=== PATIENT | female | born 1965 | race Caucasian/White ===

== ENCOUNTER 2016-05-03 18:28 | Emergency (ER) | payer MEDICARE, OTHER ==
[2016-05-03 18:42] VITALS: BP 123/81
[2016-05-03] MEDS ORDERED: DIAZEPAM 5 MG/ML SYRG IM ONE (19:53)
[2016-05-03] MEDS ORDERED: KETOROLAC TROMETHAMINE 60 MG/2 ML VIAL IM ONE ×2 (19:53→20:05)
--- NOTE | 2016-05-03 19:56 | ERNOTE ---
Back Pain ER HPI Date of Service: 05/03/16 Presenting Symptoms: hx chronic back pain Time Seen by Provider: 05/03/16 19:48 Source: patient, family, RN notes reviewed Exam Limitations: other - poor historian Immunizations: IMMUNIZATION HX Immunizations Up to Date Yes History of Influenza Vaccine Yes Hx Pneumococcal Vaccination No Allergies/Adverse Reactions: Allergies Sulfa (Sulfonamide Antibiotics) Allergy (Verified 03/14/15 19:10) bee sting Allergy (Uncoded 03/14/15 19:10) Home Medications: HOME MEDICATIONS Fenofibrate 145 mg PO 03/14/15 [Last Taken Unknown] HYDROcodone/ACETAMINOPHEN [[place] 5-325] 1 - 2 tab PO Q6H PRN #30 tab 03/14/15 [ Last Taken Unknown] Ibuprofen [Motrin] 800 mg PO TID 03/14/15 [Last Taken Unknown] Levothyroxine Sodium [Synthroid] 50 mg PO DAILY 03/14/15 [Last Taken Unknown] Pregabalin [Lyrica] 50 mg PO TID 03/14/15 [Last Taken Unknown] Propranolol HCl [Inderal] 20 mg PO BID 03/14/15 [Last Taken Unknown] Sertraline HCl [Zoloft] 200 mg PO DAILY 03/14/15 [Last Taken Unknown] Topiramate [Topamax] 50 mg PO BID 03/14/15 [Last Taken Unknown] clonazePAM [Klonopin] 1 mg PO DAILY 03/14/15 [Last Taken Unknown] Cyclobenzaprine HCl [Flexeril] 10 mg PO TID PRN #30 tab 05/03/16 [Last Taken Unknown] Ibuprofen [Motrin] 600 mg PO Q6H PRN #40 tab 05/03/16 [Last Taken Unknown] - Pain Score Pain Score #1 Pain Score: 10 Narrative: Faviola is a 50 year old female who presents to the ED with her family for low back pain that has been worsening over the past couple of days. She has chronic pain and sees Dr. Parikh in the pain clinic. She has been taking Tylenol and Tramadol for pain. Her pain is in its usual location, her right lower back radiating into her right leg. Timing: Reports: getting worse Quality/Severity: Reports: severe Location of pain: Reports: lower back, radiating to rt thigh/leg Activities at Onset: Reports: none Recent Injury?: Reports: no Possible Precipitating Factor: Reports: none Modifying Factors - (Improves): Reports: nothing Modifying Factors - (Worsens): Reports: supine position, movement flexion Associated Symptoms: Denies: fever/chills, constipation/incontinence, nausea/ vomiting, problems urinating, difficulty walking, numbess/weakness in legs Review of Systems - Review of Systems Constitutional: Present: See HPI EYE: Present: no symptoms reported ENT: Present: no symptoms reported Respiratory: Absent: shortness of breath, cough Cardiology: Present: no symptoms reported Gastrointestinal/Abdominal: Absent: nausea, vomiting, abdominal pain Genitourinary: Absent: frequency, dysuria, hematuria Musculoskeletal: Present: back pain. Absent: neck pain, joint pain Skin: Absent: rash, lesions, lumps, change in color Neurological: Absent: dizziness/light-headedness, weakness, numbness, tingling Endocrine: Present: no symptoms reported Hematologic/Lymphatic: Present: no symptoms reported Psych: Present: no symptoms reported - Patient's Past Medical History Patient History - Medical: Anxiety, Arthritis, Chronic Pain, Depression, Migraines Patient History - Cardiac/Respiratory: No pertinent hx Patient History - Cancer: No Hx of Cancer Patient History - Surgical Procedures: Cholecystectomy, Tubal Ligation, Other - Family History Mother Family History - Cardiac/Respiratory: Hypertension Father Family History - Medical: , Alcohol Abuse, Diabetes Type 2 - Social History Living Situations: home Smoking Status: Never smoker Have you smoked in the past 12 months: No Do you dip or chew tobacco: No Alcohol Use: none Physical Exam - Physical Exam General Appearance: Present: alert, mild distress, obese, other - disheveled, appears uncomfortable Respiratory: Present: no respiratory distress, no accessory muscle use Cardiovascular/Chest: Present: normal peripheral pulses Back Exam: Present: no CVA tenderness, no vertebral tenderness, decreased range of motion, other - paraspinal muscle tenderness in right lumbar region Extremity Exam: Present: normal inspection, normal range of motion Neurological Exam: Present: alert, oriented, no motor/sensory deficits, other - flat affect. Absent: normal mood/affect Skin Exam: Present: normal color, warm/dry ED Progress - Vital Signs Patient's Vital Signs:: I have reviewed the patient's vital signs. Vital Signs: Vital Signs 05/03/16 18:34 Temperature 36.6 C Pulse Rate 96 Respiratory 18 Rate Blood Pressure 123/81 O2 Sat by Pulse 99 Oximetry - Progress/Reassessment Chief Complaint: Back Pain Progress:: Improved Departure Clinical Impression: Low back pain Qualifiers: Chronicity: chronic Back pain laterality: right Sciatica presence: with sciatica Sciatica laterality: sciatica of right side Qualified Code(s): M54.41 - Lumbago with sciatica, right side - Departure Disposition: Home Follow Up Needed Condition: Good Instructions: Back Pain, Adult, [id number] Additional Instructions: Contact your doctor if severe pain continues Can also take Tylenol Referrals: Andres Parikh MD [Non Staff Physicians] - Prescriptions: Cyclobenzaprine HCl [Flexeril] 10 mg PO TID PRN #30 tab PRN Reason: MUSCLE SPASMS Ibuprofen [Motrin] 600 mg PO Q6H PRN #40 tab PRN Reason: Pain
[2016-05-03] MEDS ORDERED: DIAZEPAM 5 MG/ML SYRG ONE (20:05)
== END 2016-05-03 20:30 | disposition home or self-care (01) ==
LOC: ER 18:28
DX: M54.41 Lumbago with sciatica, right side (principal); Z90.49 Acquired absence of other specified parts of digestive tract